=== PATIENT | female | born 1955 | race African-American/Black ===

== ENCOUNTER → 2017-09-23 | Outpatient (CLI) | payer BC ==
[~2017-09-23] MED LIST: [UNRECOGNIZED DRUG - CODE] PO
== END | disposition home or self-care (01) ==
LOC: CT 10:56
PROVIDERS: ATTEND Specialist
DX: R10.9 Unspecified abdominal pain (principal); Z79.82 Long term (current) use of aspirin; Z83.3 Family history of diabetes mellitus
CPT/HCPCS: 74178; J7040

== ENCOUNTER 2017-12-16 15:31 | Emergency (ER) | payer BC ==
[~2017-12-16] VITALS: Ht 149.9 cm; Wt 65.0 kg
[2017-12-16 17:35] LABS: BASOPHILS % 0.7 % (0.0-2.0); CHLORIDE 104 mEq/L (98-107); EOSINOPHILS % 1.1 % (0.0-5.0); HEMATOCRIT. 35.1 % (36.0-48.0); HEMOGLOBIN. 11.6 g/dL (12.0-16.0); LYMPHOCYTES % 36.3 % (20.0-50.0); MEAN CORPUSCULAR HEMOGLOBIN 30.7 pg (28.0-32.0); MEAN CORPUSCULAR VOLUME 93.2 fL (81.0-99.0); MEAN PLATELET VOLUME 9.5 fl (7.4-10.4); MONOCYTES % 7.7 % (2.0-8.0); NEUTROPHILS % 54.2 % (40.0-76.0); PLATELET 243 x1000/uL (130-400); RED BLOOD CELL COUNT 3.77 mill/uL (4.2-5.4); RED CELL DISTRIBUTION WIDTH 13.8 % (11.6-14.6)
[2017-12-16 17:36] LABS: PROTHROMBIN TIME 10.2 sec (9.1-11.1)
[2017-12-16] MEDS ORDERED: IOHEXOL-300 100 ML BOTTLE ONE (18:50)
[2017-12-16 20:16] LABS: CLARITY URINE CLOUDY (CLEAR); COLOR URINE YELLOW (YELLOW); KETONES URINE NEGATIVE (NEGATIVE); LEUKOCYTE ESTERASE URINE 2+ (NEGATIVE); NITRITE URINE POSITIVE (NEGATIVE); OCCULT BLOOD URINE 2+ (NEGATIVE); PROTEIN URINE 2+ (NEGATIVE); SPECIFIC GRAVITY URINE 1.018 (1.005-1.030); UROBILINOGEN URINE 0.2 E.U./dL (0.2-1.0)
[2017-12-16 22:47] VITALS: BP 150/63
== END 2017-12-16 22:48 | disposition home or self-care (01) ==
LOC: ER 15:31
DX: N39.0 Urinary tract infection, site not specified (principal); E11.9 Type 2 diabetes mellitus without complications; I10 Essential (primary) hypertension; Z86.73 Personal history of transient ischemic attack (TIA), and cerebral infarction without residual deficits; Z98.890 Other specified postprocedural states; Z88.0 Allergy status to penicillin; Z88.1 Allergy status to other antibiotic agents; Z91.011 Allergy to milk products
CPT/HCPCS: 36415; 74177; 80053; 81003; 85025; 85610; 99285; Q9967

== ENCOUNTER 2018-12-14 08:54 | Inpatient (IN) | payer BC ==
[~2018-12-14] VITALS: Ht 149.9 cm; Wt 86.2 kg
[2018-12-14] MEDS ORDERED: KETOROLAC 30MG/ML VIAL IV STA (09:55)
[2018-12-14] MEDS ORDERED: MORPHINE SULFATE 4 MG/ML CPJ (NOT FOR IM USE) IV STA (09:55)
[2018-12-14] MEDS ORDERED: DEXAMETHASONE 4MG/ML 1ML VIAL IV ONE (10:00)
[2018-12-14 12:15] LABS: BASOPHILS % 0.4 % (0.0-2.0); EOSINOPHILS % 0.1 % (0.0-5.0); HEMATOCRIT. 31.3 % (36.0-48.0); HEMOGLOBIN. 10.4 g/dL (12.0-16.0); LYMPHOCYTES % 15.7 % (20.0-50.0); MEAN CORPUSCULAR HEMOGLOBIN 31.1 pg (28.0-32.0); MEAN CORPUSCULAR VOLUME 93.3 fL (81.0-99.0); MEAN PLATELET VOLUME 8.6 fl (7.4-10.4); MONOCYTES % 4.7 % (2.0-8.0); NEUTROPHILS % 79.1 % (40.0-76.0); PLATELET 188 x1000/uL (130-400); RED BLOOD CELL COUNT 3.35 mill/uL (4.2-5.4); RED CELL DISTRIBUTION WIDTH 13.1 % (11.6-14.6)
[2018-12-14 12:20] LABS: CHLORIDE 111 mEq/L (98-107)
[2018-12-14 16:51] VITALS: BP 148/49
[2018-12-14] MEDS ORDERED: ASCO125T PO (17:00)
[2018-12-14] MEDS ORDERED: GLIP10TA10 MT (17:00)
[2018-12-14] MEDS ORDERED: CYCLOBENZAPRINE 10MG TABLET PO PRN (17:15)
[2018-12-14] MEDS ORDERED: ENOXAPARIN 40MG/0.4ML SYR SUBCUT SCH (17:15)
[2018-12-14] MEDS ORDERED: DEXTROSE 50% WATER 50ML SYRINGE IV PRN (17:30)
[2018-12-14] MEDS: ACETAMINOPHEN 325MG TABLET PO PRN (17:56)
[2018-12-14] MEDS: INSULIN LISPRO 100 UNITS/ML SUBCUT SCH ×2 (17:58→20:54)
[2018-12-14] MEDS ORDERED: HYDROCODONE/ACETAMINOPHEN 5/325MG TABLET PO PRN (19:00)
[2018-12-14 20:00] VITALS: BP 119/60
[2018-12-14] MEDS: FAMOTIDINE 20MG TABLET PO SCH (20:57)
[2018-12-14] MEDS: NAPROXEN 375MG TABLET PO SCH (20:57)
[2018-12-14] MEDS: AMLODIPINE 5MG TABLET PO SCH (20:58)
[2018-12-14] MEDS: ENOXAPARIN 40MG/0.4ML SYR SUBCUT SCH (21:00)
[2018-12-14] MEDS: BLOOD SUGAR DIAGNOSTIC STRIP TEST SCH (21:01)
[2018-12-14] MEDS: SODIUM CHLORIDE 0.9% INJ 3ML FLUSH IVF SCH (21:01)
[2018-12-15] VITALS: BP 133/62
[2018-12-15 04:00] VITALS: BP 163/60
[2018-12-15] MEDS: SODIUM CHLORIDE 0.9% INJ 3ML FLUSH IVF SCH ×3 (05:45→21:02)
[2018-12-15 06:37] LABS: HEMOGLOBIN 10.1 g/dL (12.0-16.0); MEAN CORPUSCULAR HEMOGLOBIN 31.4 pg (28.0-32.0); MEAN CORPUSCULAR VOLUME 93.3 fL (81.0-99.0); PLATELET 213 x1000/uL (130-400); RED BLOOD CELL COUNT 3.22 mill/uL (4.2-5.4); RED CELL DISTRIBUTION WIDTH 13.2 % (11.6-14.6)
[2018-12-15 08:00] VITALS: BP 151/60
[2018-12-15] MEDS: BLOOD SUGAR DIAGNOSTIC STRIP TEST SCH ×4 (08:01→21:02)
[2018-12-15] MEDS: NAPROXEN 375MG TABLET PO SCH (08:02)
[2018-12-15] MEDS: FAMOTIDINE 20MG TABLET PO SCH (08:02)
[2018-12-15] MEDS: AMLODIPINE 5MG TABLET PO SCH (08:02)
[2018-12-15] MEDS: INSULIN LISPRO 100 UNITS/ML SUBCUT SCH ×4 (08:03→20:59)
[2018-12-15] MEDS ORDERED: DULO30CA52 PO (11:05)
[2018-12-15] MEDS ORDERED: PRAV20TA57 PO (11:05)
[2018-12-15] MEDS ORDERED: GLIP5TAB12 PO (11:05)
[2018-12-15] MEDS ORDERED: LOSA50TA41 PO (11:05)
[2018-12-15] MEDS ORDERED: OLME1TAB26 MT (11:05)
[2018-12-15] MEDS ORDERED: SITA100T11 PO (11:05)
[2018-12-15] MEDS ORDERED: METF-815 PO (11:05)
[2018-12-15] MEDS ORDERED: LINA5TAB PO (11:05)
[2018-12-15] MEDS ORDERED: AMLO5TAB88 PO (11:05)
[2018-12-15] MEDS ORDERED: CANA100T PO (11:05)
[2018-12-15] MEDS ORDERED: CIPR-168 MT (11:05)
[2018-12-15] MEDS ORDERED: LOSA1TAB9 PO (11:05)
[2018-12-15] MEDS ORDERED: METF-517 PO (11:05)
[2018-12-15] MEDS ORDERED: ATOR10TA69 PO (11:05)
[2018-12-15] MEDS ORDERED: METF-414 PO (11:05)
[2018-12-15] MEDS ORDERED: FAMO20TA8 PO (11:05)
[2018-12-15] MEDS ORDERED: METO-385 PO (11:05)
[2018-12-15] MEDS ORDERED: ASPI-1158 PO (11:05)
[2018-12-15] MEDS ORDERED: METF-816 PO (11:05)
[2018-12-15] MEDS ORDERED: PRAV40TA58 PO (11:05)
[2018-12-15 12:00] VITALS: BP 124/57
[2018-12-15 12:06] LABS: CLARITY URINE CLOUDY (CLEAR); COLOR URINE YELLOW (YELLOW); KETONES URINE NEGATIVE (NEGATIVE); LEUKOCYTE ESTERASE URINE 2+ (NEGATIVE); NITRITE URINE NEGATIVE (NEGATIVE); OCCULT BLOOD URINE TRACE (NEGATIVE); PROTEIN URINE 2+ (NEGATIVE); SPECIFIC GRAVITY URINE 1.016 (1.005-1.030); UROBILINOGEN URINE 0.2 E.U./dL (0.2-1.0)
[2018-12-15 16:00] VITALS: BP 115/45
[2018-12-15] MEDS ORDERED: CYCLOBENZAPRINE 10MG TABLET PO PRN (18:30)
[2018-12-15 20:00] VITALS: BP 125/50
[2018-12-15] MEDS: ENOXAPARIN 40MG/0.4ML SYR SUBCUT SCH (21:02)
[2018-12-16] VITALS: BP 110/52
[2018-12-16 04:00] VITALS: BP 135/54
[2018-12-16] MEDS: SODIUM CHLORIDE 0.9% INJ 3ML FLUSH IVF SCH ×3 (06:00→22:50)
[2018-12-16] MEDS: INSULIN LISPRO 100 UNITS/ML SUBCUT SCH ×4 (07:50→22:31)
[2018-12-16] MEDS: BLOOD SUGAR DIAGNOSTIC STRIP TEST SCH ×4 (07:55→21:00)
[2018-12-16 08:00] VITALS: BP 130/47
[2018-12-16] MEDS: DOCUSATE SODIUM 100MG CAPSULE PO PRN ×2 (08:53→22:24)
[2018-12-16] MEDS: FAMOTIDINE 20MG TABLET PO SCH (08:53)
[2018-12-16] MEDS: LIDOCAINE 5% PATCH TOP SCH (08:53)
[2018-12-16] MEDS: AMLODIPINE 5MG TABLET PO SCH (08:54)
[2018-12-16 09:42] LABS: BASOPHILS % 0.4 % (0.0-2.0); EOSINOPHILS % 0.1 % (0.0-5.0); HEMATOCRIT. 30.5 % (36.0-48.0); LYMPHOCYTES % 23.4 % (20.0-50.0); MEAN CORPUSCULAR HEMOGLOBIN 30.8 pg (28.0-32.0); MEAN PLATELET VOLUME 9.2 fl (7.4-10.4); MONOCYTES % 6.2 % (2.0-8.0); NEUTROPHILS % 69.9 % (40.0-76.0); PLATELET 237 x1000/uL (130-400); RED BLOOD CELL COUNT 3.25 mill/uL (4.2-5.4); RED CELL DISTRIBUTION WIDTH 13.2 % (11.6-14.6)
[2018-12-16 10:27] LABS: VITAMIN B12 SERUM 591 pg/mL (211-911)
[2018-12-16] MEDS ORDERED: CLONIDINE 0.1MG TABLET PO PRN (18:30)
[2018-12-16] MEDS: GABAPENTIN 100MG CAPSULE PO SCH (18:30)
[2018-12-16] MEDS ORDERED: LEVOFLOXACIN 500MG PREMIX 100 ML IV SCH (18:30)
[2018-12-16] MEDS ORDERED: LORAZEPAM 2MG/ML CPJ IV PRN (18:30)
[2018-12-16 20:00] VITALS: BP 107/42
[2018-12-16] MEDS ORDERED: LEVOFLOXACIN 250MG PREMIX 50 ML IV SCH (21:00)
[2018-12-16] MEDS: ATORVASTATIN CALCIUM 20MG TABLET PO SCH (21:48)
[2018-12-16] MEDS: ENOXAPARIN 40MG/0.4ML SYR SUBCUT SCH (21:48)
[2018-12-17] VITALS: BP 107/44
[2018-12-17 04:00] VITALS: BP 143/88
[2018-12-17 05:52] LABS: HEMATOCRIT 29.4 % (36.0-48.0); HEMOGLOBIN 9.7 g/dL (12.0-16.0); MEAN CORPUSCULAR HEMOGLOBIN 30.9 pg (28.0-32.0); MEAN CORPUSCULAR VOLUME 93.6 fL (81.0-99.0); PLATELET 224 x1000/uL (130-400); RED BLOOD CELL COUNT 3.15 mill/uL (4.2-5.4); RED CELL DISTRIBUTION WIDTH 13.3 % (11.6-14.6)
[2018-12-17] MEDS: INSULIN LISPRO 100 UNITS/ML SUBCUT SCH ×4 (06:55→20:13)
[2018-12-17] MEDS: BLOOD SUGAR DIAGNOSTIC STRIP TEST SCH ×4 (06:55→20:05)
[2018-12-17] MEDS: SODIUM CHLORIDE 0.9% INJ 3ML FLUSH IVF SCH ×2 (06:58→13:06)
[2018-12-17 08:00] VITALS: BP 130/57
[2018-12-17] MEDS: FAMOTIDINE 20MG TABLET PO SCH (08:50)
[2018-12-17] MEDS: GABAPENTIN 100MG CAPSULE PO SCH ×2 (08:50→17:14)
[2018-12-17] MEDS: AMLODIPINE 5MG TABLET PO SCH (08:50)
[2018-12-17] MEDS: LIDOCAINE 5% PATCH TOP SCH (09:33)
[2018-12-17 13:00] VITALS: BP 132/53
[2018-12-17] MEDS ORDERED: CEFTRIAXONE 1 G PREMIX 50 ML IV SCH (14:45)
[2018-12-17 17:00] VITALS: BP 117/45
[2018-12-17] MEDS ORDERED: BISACODYL 5MG TABLET PO PRN (17:00)
[2018-12-17] MEDS: NITROFURANTOIN MACROCRYSTAL 50MG CAPSULE PO SCH ×2 (17:14→20:00)
[2018-12-17] MEDS ORDERED: LACTULOSE 20G/30ML UDC PO NR (17:51)
[2018-12-17] MEDS: DOCUSATE SODIUM 100MG CAPSULE PO SCH (18:27)
[2018-12-17 20:00] VITALS: BP 120/55
[2018-12-17] MEDS: ATORVASTATIN CALCIUM 20MG TABLET PO SCH (20:00)
[2018-12-17] MEDS: ENOXAPARIN 40MG/0.4ML SYR SUBCUT SCH (20:01)
[2018-12-18] VITALS: BP 131/54
[2018-12-18] MEDS: SODIUM CHLORIDE 0.9% INJ 3ML FLUSH IVF SCH ×3 (00:12→13:11)
[2018-12-18 04:00] VITALS: BP 120/55
[2018-12-18] MEDS: BLOOD SUGAR DIAGNOSTIC STRIP TEST SCH ×4 (06:30→21:01)
[2018-12-18 06:49] LABS: HEMATOCRIT 31.7 % (36.0-48.0); HEMOGLOBIN 10.5 g/dL (12.0-16.0); MEAN CORPUSCULAR HEMOGLOBIN 31.2 pg (28.0-32.0); MEAN CORPUSCULAR VOLUME 94.3 fL (81.0-99.0); PLATELET 230 x1000/uL (130-400); RED BLOOD CELL COUNT 3.36 mill/uL (4.2-5.4); RED CELL DISTRIBUTION WIDTH 12.9 % (11.6-14.6)
[2018-12-18 08:00] VITALS: BP 126/56
[2018-12-18] MEDS: INSULIN LISPRO 100 UNITS/ML SUBCUT SCH ×4 (08:31→21:00)
[2018-12-18] MEDS: DOCUSATE SODIUM 100MG CAPSULE PO SCH ×2 (09:41→17:31)
[2018-12-18] MEDS: NITROFURANTOIN MACROCRYSTAL 50MG CAPSULE PO SCH ×4 (09:41→20:44)
[2018-12-18] MEDS: FAMOTIDINE 20MG TABLET PO SCH (09:41)
[2018-12-18] MEDS: GABAPENTIN 100MG CAPSULE PO SCH ×2 (09:41→17:29)
[2018-12-18] MEDS: LIDOCAINE 5% PATCH TOP SCH (09:41)
[2018-12-18] MEDS: AMLODIPINE 5MG TABLET PO SCH (09:42)
[2018-12-18 12:00] VITALS: BP 149/71
[2018-12-18] MEDS: ACETAMINOPHEN 325MG TABLET PO PRN (13:05)
[2018-12-18 16:00] VITALS: BP 138/79
[2018-12-18 20:00] VITALS: BP 132/76
[2018-12-18] MEDS: ATORVASTATIN CALCIUM 20MG TABLET PO SCH (20:44)
[2018-12-18] MEDS: ENOXAPARIN 40MG/0.4ML SYR SUBCUT SCH (20:45)
[2018-12-19] VITALS: BP 142/80
[2018-12-19 05:08] LABS: A/G RATIO 0.7 (0.7-1.7); ALBUMIN 2.9 g/dL (2.9-4.4); ALPHA-1-GLOBULIN 0.4 g/dL (0.0-0.4); BETA GLOBULIN 1.3 g/dL (0.7-1.3); GAMMA GLOBULINS 1.5 g/dL (0.4-1.8); GLOBULIN TOTAL 4.1 g/dL (2.2-3.9); M-SPIKE Not Observed g/dL (Not Observed)
[2018-12-19] MEDS: INSULIN LISPRO 100 UNITS/ML SUBCUT SCH ×3 (07:46→17:50)
[2018-12-19] MEDS: BLOOD SUGAR DIAGNOSTIC STRIP TEST SCH ×3 (07:46→17:52)
[2018-12-19 08:00] VITALS: BP 132/49
[2018-12-19] MEDS: FAMOTIDINE 20MG TABLET PO SCH (09:31)
[2018-12-19] MEDS: DOCUSATE SODIUM 100MG CAPSULE PO SCH ×2 (09:31→17:53)
[2018-12-19] MEDS: GABAPENTIN 100MG CAPSULE PO SCH ×2 (09:31→17:53)
[2018-12-19] MEDS: LIDOCAINE 5% PATCH TOP SCH (09:31)
[2018-12-19] MEDS: NITROFURANTOIN MACROCRYSTAL 50MG CAPSULE PO SCH ×3 (09:31→17:53)
[2018-12-19] MEDS: AMLODIPINE 5MG TABLET PO SCH (09:31)
[2018-12-19 12:00] VITALS: BP 140/53
[2018-12-19] MEDS: SODIUM CHLORIDE 0.9% INJ 3ML FLUSH IVF SCH (13:05)
[2018-12-19 16:00] VITALS: BP 142/54
[2018-12-19 16:49] VITALS: BP 142/54
[2018-12-20] MEDS ORDERED: DULO30CA52 MT (02:28)
[2018-12-20] MEDS ORDERED: GLIP5TAB12 MT (02:28)
[2018-12-20] MEDS ORDERED: CANA100T MT (02:28)
[2018-12-20] MEDS ORDERED: AMLO5TAB88 PO (02:28)
[2018-12-20] MEDS ORDERED: ATOR10TA MT (02:28)
[2018-12-20] MEDS ORDERED: PRAV40TA58 MT (02:28)
[2018-12-20] MEDS ORDERED: FAMO-135 MT (02:28)
[2018-12-20] MEDS ORDERED: LINA5TAB MT (02:28)
[2018-12-20] MEDS ORDERED: LOSA1TAB34 MT (02:28)
[2018-12-20] MEDS ORDERED: OLME1TAB40 MT (02:28)
[2018-12-20] MEDS ORDERED: LOSA50TA3 MT (02:28)
[2018-12-20] MEDS ORDERED: ASPI-1393 PO (02:28)
[2018-12-20] MEDS ORDERED: PRAV20TA MT (02:28)
[2018-12-20] MEDS ORDERED: METO-385 MT (02:28)
== END 2018-12-19 18:47 | DRG 552 ==
LOC: ER 09:53 → 6EST 13:55 → ENRESERV 14:55
PROVIDERS: ADMIT Ophthalmology; ATTEND Ophthalmology
DX: M54.17 Radiculopathy, lumbosacral region (principal); I69.351 Hemiplegia and hemiparesis following cerebral infarction affecting right dominant side; N39.0 Urinary tract infection, site not specified; Z16.20 Resistance to unspecified antibiotic; E78.5 Hyperlipidemia, unspecified; D64.9 Anemia, unspecified; B96.20 Unspecified Escherichia coli [E. coli] as the cause of diseases classified elsewhere; B96.89 Other specified bacterial agents as the cause of diseases classified elsewhere; E66.01 Morbid (severe) obesity due to excess calories; E86.0 Dehydration; E78.00 Pure hypercholesterolemia, unspecified; N18.3 Chronic kidney disease, stage 3 (moderate); E11.22 Type 2 diabetes mellitus with diabetic chronic kidney disease; I12.9 Hypertensive chronic kidney disease with stage 1 through stage 4 chronic kidney disease, or unspecified chronic kidney disease; M48.061 Spinal stenosis, lumbar region without neurogenic claudication; M43.16 Spondylolisthesis, lumbar region; M47.816 Spondylosis without myelopathy or radiculopathy, lumbar region; E11.65 Type 2 diabetes mellitus with hyperglycemia; Z88.8 Allergy status to other drugs, medicaments and biological substances; Z79.82 Long term (current) use of aspirin; Z68.38 Body mass index [BMI] 38.0-38.9, adult; Z88.0 Allergy status to penicillin; Z79.4 Long term (current) use of insulin; Z79.899 Other long term (current) drug therapy; Z71.3 Dietary counseling and surveillance
CPT/HCPCS: 36415; 72131; 72148; 73502; 80048; 80061; 81003; 82607; 82962; 83036; 83540; 83550; 84155; 84165; 84443; 85027; 87077; 87186; 93005; 93970; 97116; 97162; 97166; 97530; 99285; J1100; J1650; J1815; J1885; J1956; J2270; J7040; J7070

== ENCOUNTER 2018-12-19 18:50 | Inpatient (IN) | payer BC ==
[~2018-12-19] VITALS: Ht 149.9 cm; Wt 89.4 kg
[~2018-12-19 18:50] MED LIST changes: +AMLO5TAB88 PO; +ASCO125T PO; +ASPI-1158 PO; +ATOR10TA69 PO; +CANA100T PO; +CIPR-168 MT; +DULO30CA52 PO; +FAMO20TA8 PO; +GLIP10TA10 MT; +GLIP5TAB12 PO; +LINA5TAB PO; +LOSA1TAB9 PO; +LOSA50TA41 PO; +METF-414 PO; +METF-517 PO; +METF-815 PO; +METF-816 PO; +METO-385 PO; +OLME1TAB26 MT; +PRAV20TA57 PO; +PRAV40TA58 PO; +SITA100T11 PO
[2018-12-19 20:00] VITALS: BP 146/54
[2018-12-19 20:15] VITALS: BP 146/54
[2018-12-19] MEDS ORDERED: BISACODYL 5MG TABLET PO PRN (20:15)
[2018-12-19] MEDS ORDERED: CLONIDINE 0.1MG TABLET PO PRN (20:15)
[2018-12-19] MEDS ORDERED: DOCUSATE SODIUM 100MG CAPSULE PO PRN (20:15)
[2018-12-19] MEDS ORDERED: LORAZEPAM 2MG/ML CPJ IV PRN (20:15)
[2018-12-19] MEDS ORDERED: CYCLOBENZAPRINE 10MG TABLET PO PRN (20:15)
[2018-12-19] MEDS ORDERED: HYDROCODONE/ACETAMINOPHEN 5/325MG TABLET PO PRN (20:15)
[2018-12-19] MEDS ORDERED: DEXTROSE 50% WATER 50ML SYRINGE IV PRN (20:15)
[2018-12-19] MEDS: BLOOD SUGAR DIAGNOSTIC STRIP TEST SCH (21:40)
[2018-12-19] MEDS: ENOXAPARIN 40MG/0.4ML SYR SUBCUT SCH (21:49)
[2018-12-19] MEDS: INSULIN LISPRO 100 UNITS/ML SUBCUT SCH (21:52)
[2018-12-19] MEDS: NITROFURANTOIN MACROCRYSTAL 50MG CAPSULE PO SCH (23:11)
[2018-12-20] MEDS ORDERED: AMLO5TAB88 PO (02:28)
[2018-12-20] MEDS ORDERED: OLME1TAB40 MT (02:28)
[2018-12-20] MEDS ORDERED: ATOR10TA MT (02:28)
[2018-12-20] MEDS ORDERED: METO-385 MT (02:28)
[2018-12-20] MEDS ORDERED: LINA5TAB MT (02:28)
[2018-12-20] MEDS ORDERED: ASPI-1393 PO (02:28)
[2018-12-20] MEDS ORDERED: FAMO-135 MT (02:28)
[2018-12-20] MEDS ORDERED: GLIP5TAB12 MT (02:28)
[2018-12-20] MEDS ORDERED: PRAV40TA58 MT (02:28)
[2018-12-20] MEDS ORDERED: CANA100T MT (02:28)
[2018-12-20] MEDS ORDERED: LOSA1TAB34 MT (02:28)
[2018-12-20] MEDS ORDERED: LOSA50TA3 MT (02:28)
[2018-12-20] MEDS ORDERED: PRAV20TA MT (02:28)
[2018-12-20] MEDS ORDERED: DULO30CA52 MT (02:28)
[2018-12-20] MEDS: NITROFURANTOIN MACROCRYSTAL 50MG CAPSULE PO SCH ×4 (06:08→23:29)
[2018-12-20] MEDS: BLOOD SUGAR DIAGNOSTIC STRIP TEST SCH ×4 (06:11→21:20)
[2018-12-20] MEDS: INSULIN LISPRO 100 UNITS/ML SUBCUT SCH ×4 (06:41→21:20)
[2018-12-20 07:30] LABS: BASOPHILS % 0.6 % (0.0-2.0); EOSINOPHILS % 0.8 % (0.0-5.0); HEMATOCRIT. 30.8 % (36.0-48.0); LYMPHOCYTES % 32.5 % (20.0-50.0); MEAN CORPUSCULAR HEMOGLOBIN 30.9 pg (28.0-32.0); MEAN CORPUSCULAR VOLUME 95.5 fL (81.0-99.0); MEAN PLATELET VOLUME 9.1 fl (7.4-10.4); MONOCYTES % 6.7 % (2.0-8.0); NEUTROPHILS % 59.4 % (40.0-76.0); PLATELET 191 x1000/uL (130-400); RED BLOOD CELL COUNT 3.23 mill/uL (4.2-5.4); RED CELL DISTRIBUTION WIDTH 13.2 % (11.6-14.6)
[2018-12-20 08:23] VITALS: BP 141/63
[2018-12-20] MEDS: LIDOCAINE 5% PATCH TOP SCH (10:21)
[2018-12-20] MEDS: GABAPENTIN 100MG CAPSULE PO SCH ×2 (10:22→18:05)
[2018-12-20 20:00] VITALS: BP 152/63
[2018-12-20] MEDS: ENOXAPARIN 40MG/0.4ML SYR SUBCUT SCH (21:16)
[2018-12-20 21:50] LABS: CLARITY URINE CLEAR (CLEAR); COLOR URINE YELLOW (YELLOW); KETONES URINE NEGATIVE (NEGATIVE); LEUKOCYTE ESTERASE URINE NEGATIVE (NEGATIVE); NITRITE URINE NEGATIVE (NEGATIVE); OCCULT BLOOD URINE NEGATIVE (NEGATIVE); PROTEIN URINE 2+ (NEGATIVE); SPECIFIC GRAVITY URINE 1.015 (1.005-1.030); UROBILINOGEN URINE 0.2 E.U./dL (0.2-1.0)
[2018-12-21] MEDS: NITROFURANTOIN MACROCRYSTAL 50MG CAPSULE PO SCH ×4 (06:40→23:54)
[2018-12-21] MEDS: BLOOD SUGAR DIAGNOSTIC STRIP TEST SCH ×4 (06:40→20:28)
[2018-12-21 08:00] VITALS: BP 153/63
[2018-12-21] MEDS: INSULIN LISPRO 100 UNITS/ML SUBCUT SCH ×4 (09:00→20:41)
[2018-12-21] MEDS: GABAPENTIN 100MG CAPSULE PO SCH ×2 (09:10→16:46)
[2018-12-21] MEDS: LIDOCAINE 5% PATCH TOP SCH (09:11)
[2018-12-21] MEDS: LACTULOSE 20G/30ML UDC PO SCH ×2 (19:34→20:28)
[2018-12-21 20:00] VITALS: BP 135/53
[2018-12-21] MEDS: ENOXAPARIN 40MG/0.4ML SYR SUBCUT SCH (20:29)
[2018-12-21 20:52] LABS: CLARITY URINE CLEAR (CLEAR); COLOR URINE YELLOW (YELLOW); KETONES URINE NEGATIVE (NEGATIVE); LEUKOCYTE ESTERASE URINE NEGATIVE (NEGATIVE); NITRITE URINE NEGATIVE (NEGATIVE); OCCULT BLOOD URINE NEGATIVE (NEGATIVE); PROTEIN URINE 2+ (NEGATIVE); SPECIFIC GRAVITY URINE 1.011 (1.005-1.030); UROBILINOGEN URINE 0.2 E.U./dL (0.2-1.0)
[2018-12-22] MEDS: NITROFURANTOIN MACROCRYSTAL 50MG CAPSULE PO SCH ×4 (05:55→23:31)
[2018-12-22] MEDS: BLOOD SUGAR DIAGNOSTIC STRIP TEST SCH ×4 (05:55→21:08)
[2018-12-22] MEDS: INSULIN LISPRO 100 UNITS/ML SUBCUT SCH ×4 (06:04→21:17)
[2018-12-22 07:35] LABS: BASOPHILS % 0.6 % (0.0-2.0); EOSINOPHILS % 0.7 % (0.0-5.0); HEMATOCRIT. 26.3 % (36.0-48.0); HEMOGLOBIN. 8.8 g/dL (12.0-16.0); MEAN CORPUSCULAR HEMOGLOBIN 31.5 pg (28.0-32.0); MEAN CORPUSCULAR VOLUME 94.1 fL (81.0-99.0); MONOCYTES % 7.2 % (2.0-8.0); NEUTROPHILS % 61.5 % (40.0-76.0); PLATELET 217 x1000/uL (130-400); RED BLOOD CELL COUNT 2.79 mill/uL (4.2-5.4); RED CELL DISTRIBUTION WIDTH 13.1 % (11.6-14.6)
[2018-12-22 08:02] VITALS: BP 143/64
[2018-12-22] MEDS: GABAPENTIN 100MG CAPSULE PO SCH ×2 (08:20→16:13)
[2018-12-22] MEDS: DOCUSATE SODIUM 100MG CAPSULE PO SCH ×2 (08:21→16:13)
[2018-12-22] MEDS: LACTULOSE 20G/30ML UDC PO SCH (08:21)
[2018-12-22] MEDS: LIDOCAINE 5% PATCH TOP SCH (08:22)
[2018-12-22 08:34] LABS: CHLORIDE 109 mEq/L (98-107)
[2018-12-22 08:51] LABS: PHOSPHORUS 4.4 mg/dL (2.5-4.9)
[2018-12-22 08:54] LABS: TOTAL IRON BINDING CAPACITY 203 ug/dL (250-450)
[2018-12-22 10:16] LABS: FOLIC ACID (FOLATE) SERUM >20 ng/mL ng/mL (>5.38)
[2018-12-22 10:19] LABS: FERRITIN 536 ng/mL (10-291)
[2018-12-22 10:26] LABS: VITAMIN B12 SERUM 575 pg/mL (211-911)
[2018-12-22 20:00] VITALS: BP 148/67
[2018-12-22] MEDS: ENOXAPARIN 40MG/0.4ML SYR SUBCUT SCH (21:09)
[2018-12-23] MEDS: NITROFURANTOIN MACROCRYSTAL 50MG CAPSULE PO SCH ×2 (05:48→15:22)
[2018-12-23] MEDS: BLOOD SUGAR DIAGNOSTIC STRIP TEST SCH ×4 (05:48→20:37)
[2018-12-23] MEDS: INSULIN LISPRO 100 UNITS/ML SUBCUT SCH ×4 (05:51→20:50)
[2018-12-23 06:56] LABS: BASOPHILS % 0.6 % (0.0-2.0); EOSINOPHILS % 0.7 % (0.0-5.0); HEMATOCRIT. 26.7 % (36.0-48.0); HEMOGLOBIN. 8.9 g/dL (12.0-16.0); LYMPHOCYTES % 19.5 % (20.0-50.0); MEAN CORPUSCULAR HEMOGLOBIN 31.3 pg (28.0-32.0); MEAN CORPUSCULAR VOLUME 94.4 fL (81.0-99.0); MEAN PLATELET VOLUME 9.1 fl (7.4-10.4); MONOCYTES % 6.2 % (2.0-8.0); PLATELET 215 x1000/uL (130-400); RED BLOOD CELL COUNT 2.83 mill/uL (4.2-5.4)
[2018-12-23 07:58] VITALS: BP 143/57
[2018-12-23] MEDS: GABAPENTIN 100MG CAPSULE PO SCH ×2 (08:16→17:05)
[2018-12-23] MEDS: DOCUSATE SODIUM 100MG CAPSULE PO SCH ×2 (08:16→17:05)
[2018-12-23] MEDS: LIDOCAINE 5% PATCH TOP SCH (08:17)
[2018-12-23] MEDS ORDERED: SODIUM CHLORIDE 0.45% 1,000 ML IV ONE (17:00)
[2018-12-23 20:00] VITALS: BP 128/48
[2018-12-23] MEDS: ENOXAPARIN 40MG/0.4ML SYR SUBCUT SCH (20:34)
[2018-12-24] MEDS: BLOOD SUGAR DIAGNOSTIC STRIP TEST SCH ×4 (06:46→20:52)
[2018-12-24] MEDS: INSULIN LISPRO 100 UNITS/ML SUBCUT SCH ×4 (06:47→21:21)
[2018-12-24 07:47] LABS: HEMATOCRIT 24.9 % (36.0-48.0); HEMOGLOBIN 8.3 g/dL (12.0-16.0); MEAN CORPUSCULAR HEMOGLOBIN 31.5 pg (28.0-32.0); MEAN CORPUSCULAR VOLUME 94.6 fL (81.0-99.0); PLATELET 193 x1000/uL (130-400); RED BLOOD CELL COUNT 2.64 mill/uL (4.2-5.4); RED CELL DISTRIBUTION WIDTH 13.3 % (11.6-14.6)
[2018-12-24 07:54] VITALS: BP 132/55
[2018-12-24] MEDS: GABAPENTIN 100MG CAPSULE PO SCH ×2 (08:18→17:55)
[2018-12-24] MEDS: LIDOCAINE 5% PATCH TOP SCH (08:19)
[2018-12-24] MEDS: DOCUSATE SODIUM 100MG CAPSULE PO SCH ×2 (08:19→17:55)
[2018-12-24] MEDS ORDERED: LORAZEPAM 0.5MG TABLET PO PRN (13:00)
[2018-12-24 20:00] VITALS: BP 140/54
[2018-12-24] MEDS: ENOXAPARIN 40MG/0.4ML SYR SUBCUT SCH (20:53)
[2018-12-25] MEDS: BLOOD SUGAR DIAGNOSTIC STRIP TEST SCH ×4 (06:20→21:24)
[2018-12-25] MEDS: INSULIN LISPRO 100 UNITS/ML SUBCUT SCH ×4 (06:21→21:38)
[2018-12-25 08:00] VITALS: BP_SYST 119; BP_SYST 157; BP_DIAS 56; BP_DIAS 64
[2018-12-25] MEDS: LIDOCAINE 5% PATCH TOP SCH (08:48)
[2018-12-25] MEDS: DOCUSATE SODIUM 100MG CAPSULE PO SCH ×2 (08:48→16:46)
[2018-12-25] MEDS: GABAPENTIN 100MG CAPSULE PO SCH ×2 (08:48→16:46)
[2018-12-25 09:20] LABS: HEMATOCRIT 24.6 % (36.0-48.0); HEMOGLOBIN 8.2 g/dL (12.0-16.0); MEAN CORPUSCULAR HEMOGLOBIN 31.3 pg (28.0-32.0); MEAN CORPUSCULAR VOLUME 94.4 fL (81.0-99.0); PLATELET 196 x1000/uL (130-400)
[2018-12-25 20:00] VITALS: BP 135/52
[2018-12-25] MEDS: ENOXAPARIN 40MG/0.4ML SYR SUBCUT SCH (21:24)
[2018-12-26] MEDS: ACETAMINOPHEN 325MG TABLET PO PRN ×2 (00:49→22:02)
[2018-12-26] MEDS: BLOOD SUGAR DIAGNOSTIC STRIP TEST SCH ×4 (06:26→21:59)
[2018-12-26] MEDS: INSULIN LISPRO 100 UNITS/ML SUBCUT SCH ×4 (06:30→21:58)
[2018-12-26] MEDS: DOCUSATE SODIUM 100MG CAPSULE PO SCH ×2 (09:16→16:29)
[2018-12-26] MEDS: GABAPENTIN 100MG CAPSULE PO SCH ×2 (09:16→16:29)
[2018-12-26] MEDS: LIDOCAINE 5% PATCH TOP SCH (09:17)
[2018-12-26 09:28] VITALS: BP 127/55
[2018-12-26 11:44] LABS: HEMATOCRIT 25.9 % (36.0-48.0); HEMOGLOBIN 8.5 g/dL (12.0-16.0); MEAN CORPUSCULAR HEMOGLOBIN 31.2 pg (28.0-32.0); MEAN CORPUSCULAR VOLUME 94.9 fL (81.0-99.0); PLATELET 218 x1000/uL (130-400); RED BLOOD CELL COUNT 2.73 mill/uL (4.2-5.4); RED CELL DISTRIBUTION WIDTH 13.3 % (11.6-14.6)
[2018-12-26 20:00] VITALS: BP 111/57
[2018-12-26] MEDS: ENOXAPARIN 40MG/0.4ML SYR SUBCUT SCH (22:03)
[2018-12-27] MEDS: BLOOD SUGAR DIAGNOSTIC STRIP TEST SCH ×4 (06:24→20:31)
[2018-12-27] MEDS: INSULIN LISPRO 100 UNITS/ML SUBCUT SCH ×4 (07:24→20:57)
[2018-12-27 08:01] VITALS: BP 166/66
[2018-12-27] MEDS: GABAPENTIN 100MG CAPSULE PO SCH ×2 (08:12→16:43)
[2018-12-27] MEDS: DOCUSATE SODIUM 100MG CAPSULE PO SCH ×2 (08:13→16:43)
[2018-12-27] MEDS: LIDOCAINE 5% PATCH TOP SCH (08:14)
[2018-12-27 08:15] VITALS: BP 142/62
[2018-12-27 20:00] VITALS: BP 135/91
[2018-12-27] MEDS: ENOXAPARIN 40MG/0.4ML SYR SUBCUT SCH (20:28)
[2018-12-28] MEDS: INSULIN LISPRO 100 UNITS/ML SUBCUT SCH ×4 (06:28→20:48)
[2018-12-28] MEDS: BLOOD SUGAR DIAGNOSTIC STRIP TEST SCH ×4 (06:28→20:39)
[2018-12-28 08:00] VITALS: BP 151/60
[2018-12-28] MEDS: GABAPENTIN 100MG CAPSULE PO SCH ×2 (09:39→18:11)
[2018-12-28] MEDS: DOCUSATE SODIUM 100MG CAPSULE PO SCH ×2 (09:40→17:00)
[2018-12-28] MEDS: LIDOCAINE 5% PATCH TOP SCH (09:43)
[2018-12-28 17:25] LABS: HEMOGLOBIN 9.4 g/dL (12.0-16.0); MEAN CORPUSCULAR HEMOGLOBIN 31.3 pg (28.0-32.0); MEAN CORPUSCULAR VOLUME 96.4 fL (81.0-99.0); PLATELET 276 x1000/uL (130-400); RED BLOOD CELL COUNT 3.01 mill/uL (4.2-5.4); RED CELL DISTRIBUTION WIDTH 13.4 % (11.6-14.6)
[2018-12-28 20:00] VITALS: BP 133/61
[2018-12-28] MEDS: ENOXAPARIN 40MG/0.4ML SYR SUBCUT SCH (20:39)
[2018-12-29] MEDS: ACETAMINOPHEN 325MG TABLET PO PRN (01:41)
[2018-12-29 04:07] LABS: 25-HYDROXY VITAMIN D3 14 ng/mL (.)
[2018-12-29] MEDS: BLOOD SUGAR DIAGNOSTIC STRIP TEST SCH ×2 (06:21→11:50)
[2018-12-29] MEDS: INSULIN LISPRO 100 UNITS/ML SUBCUT SCH ×2 (06:21→12:42)
[2018-12-29 08:00] VITALS: BP 127/76
[2018-12-29] MEDS: DOCUSATE SODIUM 100MG CAPSULE PO SCH (08:47)
[2018-12-29] MEDS: GABAPENTIN 100MG CAPSULE PO SCH (08:47)
[2018-12-29] MEDS: LIDOCAINE 5% PATCH TOP SCH (08:47)
[2018-12-29 10:23] VITALS: BP 127/76
== END 2018-12-29 15:43 | disposition home health service (06) | DRG 552 ==
PROVIDERS: ADMIT Psychiatry & Neurology Neurology; ATTEND Ophthalmology
DX: M54.17 Radiculopathy, lumbosacral region (principal); N39.0 Urinary tract infection, site not specified; I69.351 Hemiplegia and hemiparesis following cerebral infarction affecting right dominant side; N18.9 Chronic kidney disease, unspecified; I12.9 Hypertensive chronic kidney disease with stage 1 through stage 4 chronic kidney disease, or unspecified chronic kidney disease; E78.5 Hyperlipidemia, unspecified; D63.1 Anemia in chronic kidney disease; R26.9 Unspecified abnormalities of gait and mobility; E66.01 Morbid (severe) obesity due to excess calories; M25.552 Pain in left hip; M51.26 Other intervertebral disc displacement, lumbar region; M43.17 Spondylolisthesis, lumbosacral region; M51.24 Other intervertebral disc displacement, thoracic region; M48.04 Spinal stenosis, thoracic region; B96.20 Unspecified Escherichia coli [E. coli] as the cause of diseases classified elsewhere; E11.22 Type 2 diabetes mellitus with diabetic chronic kidney disease; F32.9 Major depressive disorder, single episode, unspecified; Z68.38 Body mass index [BMI] 38.0-38.9, adult; Z68.39 Body mass index [BMI] 39.0-39.9, adult; Z88.0 Allergy status to penicillin; Z88.1 Allergy status to other antibiotic agents; Z88.8 Allergy status to other drugs, medicaments and biological substances; Z74.01 Bed confinement status
CPT/HCPCS: 36415; 76770; 80048; 81003; 82270; 82306; 82607; 82728; 82746; 82962; 83540; 83550; 83735; 84100; 84443; 85027; 85044; 92523; 93970; 97110; 97112; 97116; 97127; 97150; 97162; 97166; 97530; 97535; J1650; J1815